=== PATIENT | female | born 1970 | race Caucasian/White ===

== ENCOUNTER 2021-01-09 10:52 | Observation (INO) ==
[2021-01-09 11:17] LABS: Basophils % 0.8 % (0.0-0.8); Eosinophils # 0.1 10*3/uL (0.0-0.87); Eosinophils % 2.7 % (0.00-10.9); Hematocrit 34.4 VOL% (35.7-47.0); Hemoglobin 12.4 GM/DL (12.0-16.0); Immature Granulocytes % 0.4 %; Immature Granulocytes Absolute 0.02 #; Lymphocytes # 1.6 10*3/uL (1.4-4.0); Lymphocytes % 32.8 % (21.3-54.2); Mean Corpuscular Volume 86.6 FL (87-102); Mean Platelet Volume 9.7 FL (9.6-12.0); Monocytes % 6.5 % (1.7-12.7); Neutrophils % 56.8 % (38.7-73.9); Platelet Count 204 T/CUMM (130-400); Red Blood Count 3.97 MC/CUMM (3.8-5.5); Red Cell Distribution Width 11.8 % (9.3-17.3); White Blood Count 4.8 T/CUMM (4-12)
[2021-01-09 11:33] LABS: Albumin 3.9 G/DL (3.4-5.0); Bilirubin,Total 0.4 MG/DL (0.2-1.0); Calcium 8.6 MG/DL (8.5-10.1); Osmolality,Calculated 267.2 MOS/KG (273-304); Potassium 3.9 MMOL/L (3.5-5.1); Total Protein 6.6 G/DL (6.4-8.2)
[2021-01-09 12:08] LABS: Bilirubin,Urine Negative (Negative); Blood, Urine Negative (Negative); Glucose,Urine (UA) Negative (Negative); Ketones,Urine Negative (Negative); Nitrite,Urine Negative (Negative); Protein,Urine Negative; Urine Appearance CLEAR (Clear); Urine Color Yellow (Yellow); Urine Specific Gravity 1.016 (1.001-1.035); Urine Urobilinogen < 2.0 EU/DL (0.2-1.0)
[2021-01-09 12:44] LABS: Barbiturates Screen,Urine Negative (Negative); Benzodiazepines Screen,Urine Negative (Negative); Cannabinoid Screen,Urine Negative (Negative); Opiate Screen,Urine Positive (Negative); Phencyclidine Screen,Urine Negative (Negative)
[2021-01-09] MEDS ORDERED: DEXTROSE 50% 25 GM/50 ML VIAL IV PRN (13:23)
[2021-01-09] MEDS ORDERED: DOCUSATE SODIUM 100 MG CAPSULE PO PRN (13:23)
[2021-01-09] MEDS ORDERED: GLUCAGON 1 MG VIAL IM PRN (13:23)
[2021-01-09] MEDS ORDERED: SIMETHICONE CHEW 125 MG TABLET PO PRN (13:23)
[2021-01-09] MEDS ORDERED: ONDANSETRON 4 MG/2 ML VIAL IV PRN (13:23)
[2021-01-09] MEDS ORDERED: ALUMINUM/MAGNES/SIMETH MAX STR 30 ML UDCUP PO PRN (13:23)
[2021-01-09] MEDS: METOPROLOL SUCCINATE XL 25 MG TABLET PO SCH (14:44)
[2021-01-09] MEDS: ENOXAPARIN 40 MG/0.4 ML SYRINGE SUBCUT SCH (14:44)
[2021-01-09] MEDS: levETIRAcetam 250 MG TABLET PO SCH ×2 (14:44→22:21)
[2021-01-09] MEDS: hydrOXYzine HCL 25 MG TABLET PO SCH ×2 (17:03→22:23)
[2021-01-09] MEDS ORDERED: oxyCODONE IR 5 MG TABLET PO PRN (18:22)
[2021-01-09] MEDS ORDERED: CYCLOBENZAPRINE 10 MG TABLET PO SCH (21:00)
[2021-01-09] MEDS ORDERED: traZODone 50 MG TABLET PO SCH (21:00)
[2021-01-09] MEDS ORDERED: AMITRIPTYLINE 10 MG TABLET PO SCH (21:00)
[2021-01-09] MEDS: PREGABALIN 75 MG CAPSULE PO SCH (22:21)
[2021-01-09] MEDS: PANTOPRAZOLE 40 MG TABLET PO SCH (22:22)
[2021-01-09] MEDS: TOPIRAMATE 25 MG TABLET PO SCH (22:22)
[2021-01-09] MEDS: tiZANidine 4 MG TABLET PO SCH (22:23)
[2021-01-09] MEDS: MIDODRINE 5 MG TABLET PO SCH (22:24)
[2021-01-10 05:15] LABS: Basophils % 0.5 % (0.0-0.8); Eosinophils # 0.2 10*3/uL (0.0-0.87); Eosinophils % 4.5 % (0.00-10.9); Hematocrit 31.6 VOL% (35.7-47.0); Hemoglobin 11.3 GM/DL (12.0-16.0); Immature Granulocytes % 0.2 %; Immature Granulocytes Absolute 0.01 #; Lymphocytes # 1.3 10*3/uL (1.4-4.0); Lymphocytes % 30.6 % (21.3-54.2); Mean Corpuscular HGB Conc 35.8 GM/DL (32-36); Mean Corpuscular Volume 86.6 FL (87-102); Mean Platelet Volume 10.1 FL (9.6-12.0); Monocytes % 6.1 % (1.7-12.7); Neutrophils % 58.1 % (38.7-73.9); Platelet Count 195 T/CUMM (130-400); Red Blood Count 3.65 MC/CUMM (3.8-5.5); Red Cell Distribution Width 11.9 % (9.3-17.3); White Blood Count 4.3 T/CUMM (4-12)
[2021-01-10 05:37] LABS: Calcium 8.4 MG/DL (8.5-10.1); Osmolality,Calculated 267.2 MOS/KG (273-304); Potassium 3.9 MMOL/L (3.5-5.1); Risk Ratio 2.42; VLDL CHOLESTEROL 10.2 MG/DL
[2021-01-10] MEDS: tiZANidine 4 MG TABLET PO SCH ×2 (06:12→14:05)
[2021-01-10] MEDS: MIDODRINE 5 MG TABLET PO SCH (08:41)
[2021-01-10] MEDS: TOPIRAMATE 25 MG TABLET PO SCH (08:42)
[2021-01-10] MEDS: PANTOPRAZOLE 40 MG TABLET PO SCH (08:42)
[2021-01-10] MEDS: levETIRAcetam 250 MG TABLET PO SCH (08:43)
[2021-01-10] MEDS ORDERED: CITALOPRAM 20 MG TABLET PO SCH (09:00)
[2021-01-10] MEDS ORDERED: FLUDROCORTISONE 0.1 MG TABLET PO SCH (09:00)
[2021-01-10] MEDS: METOPROLOL SUCCINATE XL 25 MG TABLET PO SCH (10:03)
[2021-01-10] MEDS: hydrOXYzine HCL 25 MG TABLET PO SCH ×2 (13:35→14:05)
[2021-01-10] MEDS: PREGABALIN 75 MG CAPSULE PO SCH (13:35)
[2021-01-10] MEDS: ENOXAPARIN 40 MG/0.4 ML SYRINGE SUBCUT SCH (14:05)
[2021-01-10] MEDS ORDERED: MIDODRINE 5 MG TABLET PO SCH (15:00)
[2021-01-10 15:39] VITALS: BP 104/48
== END 2021-01-10 16:50 | disposition home or self-care (01) ==
LOC: EDUNIT# → EDBD → N.EDINP 10:52 → N.ED 10:52 → N.TELES 17:48
PROVIDERS: ADMIT Hospitalist; ATTEND Hospitalist

== ENCOUNTER 2022-02-16 11:30 | Inpatient (IN) ==
[2022-02-16 12:21] LABS: Basophils # 0.1 10*3/uL (0.0-0.2); Basophils % 0.9 % (0.0-0.8); Eosinophils # 0.2 10*3/uL (0.0-0.87); Eosinophils % 3.9 % (0.00-10.9); Hematocrit 39.4 VOL% (35.7-47.0); Hemoglobin 13.3 GM/DL (12.0-16.0); Immature Granulocytes % 0.2 %; Immature Granulocytes Absolute 0.01 #; Lymphocytes # 2.4 10*3/uL (1.4-4.0); Lymphocytes % 41.7 % (21.3-54.2); Mean Corpuscular HGB Conc 33.8 GM/DL (32-36); Mean Corpuscular Volume 89.5 FL (87-102); Mean Platelet Volume 11.2 FL (9.6-12.0); Monocytes # 0.4 10*3/uL (0.11-0.8); Monocytes % 7.8 % (1.7-12.7); Neutrophils % 45.5 % (38.7-73.9); Platelet Count 200 T/CUMM (130-400); Red Cell Distribution Width 13.3 % (9.3-17.3); White Blood Count 5.7 T/CUMM (4-12)
[2022-02-16] MEDS ORDERED: SODIUM CHLORIDE 0.9% 1,000 ML IV STA ×2 (12:31→14:31)
[2022-02-16 12:38] LABS: Alanine Aminotransferase 16 U/L (13-56); Albumin 3.6 G/DL (3.4-5.0); Alkaline Phosphatase 84 U/L (45-117); Aspartate Amino Transferase 8 U/L (0-37); Blood Urea Nitrogen 10 MG/DL (7-18); Calcium 8.9 MG/DL (8.5-10.1); Carbon Dioxide 24 MMOL/L (21-32); Chloride 111 MMOL/L (98-107); Glucose 84 MG/DL (74-106); High Sensitive Troponin I* < 3.0 ng/L (0-54); Sodium 143 MMOL/L (136-145)
[2022-02-16 12:49] LABS: INR 0.9; PT Patient Result 10.5 SECS (10.5-12.0); Partial Thromboplastin Time 27.9 SECS (23.7-32.9)
[2022-02-16] MEDS ORDERED: MORPHINE 2 MG/1 ML SYRINGE IV STA ×2 (14:29→15:30)
[2022-02-16] MEDS ORDERED: ONDANSETRON 4 MG/2 ML VIAL IV PRN (16:22)
[2022-02-16] MEDS ORDERED: GLUCAGON 1 MG VIAL IM PRN (16:22)
[2022-02-16] MEDS ORDERED: SIMETHICONE CHEW 125 MG TABLET PO PRN (16:22)
[2022-02-16] MEDS ORDERED: ALUM/MAG/SIMETH/LIDO VISC 1:1 30 ML BOTTLE PO PRN (16:28)
[2022-02-16] MEDS ORDERED: DEXTROSE 10% 250 ML BAG IV PRN (16:40)
[2022-02-16] MEDS: LACTATED RINGERS 1,000 ML IV SCH (16:53)
[2022-02-16 17:23] LABS: Bacteria,Urine Occasional /HPF (Few); RBC,Urine <1 /HPF (0-4)
[2022-02-16 17:25] LABS: Bilirubin,Urine Negative (Negative); Blood, Urine Negative (Negative); Glucose,Urine (UA) Negative (Negative); Ketones,Urine Negative (Negative); Nitrite,Urine Negative (Negative); Protein,Urine Negative (Negative); Urine Appearance Clear (Clear); Urine Color Yellow (Yellow); Urine Urobilinogen 0.2 eU/dL (<2.0); Urine pH 7.5 (4.5-8.0)
[2022-02-16 17:33] LABS: Barbiturates Screen,Urine Negative (Negative); Benzodiazepines Screen,Urine Negative (Negative); Cannabinoid Screen,Urine Negative (Negative); Opiate Screen,Urine Positive (Negative); Phencyclidine Screen,Urine Negative (Negative)
[2022-02-16] MEDS ORDERED: ENOXAPARIN 40 MG/0.4 ML SYRINGE SUBCUT SCH (18:00)
[2022-02-16] MEDS: SUCRALFATE 1 GM/10 ML UDCUP PO SCH ×2 (18:41→20:37)
[2022-02-16] MEDS: DIVALPROEX ER 500 MG TABLET PO SCH (20:37)
[2022-02-16] MEDS: PANTOPRAZOLE 40 MG TABLET PO SCH (20:38)
[2022-02-16] MEDS: DOCUSATE SODIUM 100 MG CAPSULE PO PRN (20:38)
[2022-02-16] MEDS: ZALEPLON 5 MG CAPSULE PO SCH (21:56)
[2022-02-17] MEDS: LACTATED RINGERS 1,000 ML IV SCH ×3 (03:53→15:56)
[2022-02-17 06:52] LABS: Basophils % 0.5 % (0.0-0.8); Eosinophils # 0.2 10*3/uL (0.0-0.87); Eosinophils % 5.2 % (0.00-10.9); Hematocrit 35.6 VOL% (35.7-47.0); Hemoglobin 12.1 GM/DL (12.0-16.0); Immature Granulocytes % 0.5 %; Immature Granulocytes Absolute 0.02 #; Lymphocytes % 44.1 % (21.3-54.2); Mean Corpuscular Volume 89.4 FL (87-102); Mean Platelet Volume 11.5 FL (9.6-12.0); Monocytes # 0.3 10*3/uL (0.11-0.8); Monocytes % 7.7 % (1.7-12.7); Platelet Count 144 T/CUMM (130-400); Red Blood Count 3.98 MC/CUMM (3.8-5.5); Red Cell Distribution Width 13.2 % (9.3-17.3); White Blood Count 4.4 T/CUMM (4-12)
[2022-02-17 07:30] LABS: Albumin 3.4 G/DL (3.4-5.0); Bilirubin,Total 0.5 MG/DL (0.20-1.00); Potassium 3.6 MMOL/L (3.5-5.1); Risk Ratio 2.66; Total Protein 5.9 G/DL (6.4-8.2)
[2022-02-17] MEDS: PANTOPRAZOLE 40 MG TABLET PO SCH ×2 (08:08→22:16)
[2022-02-17] MEDS: SUCRALFATE 1 GM/10 ML UDCUP PO SCH ×4 (08:08→22:15)
[2022-02-17] MEDS ORDERED: BUSPIRONE 30 MG PO SCH (10:30)
[2022-02-17] MEDS: busPIRone 15 MG TABLET PO SCH ×2 (10:46→22:15)
[2022-02-17] MEDS: TOPIRAMATE 100 MG TABLET PO SCH ×2 (10:46→22:17)
[2022-02-17] MEDS: PREGABALIN 100 MG CAPSULE PO SCH ×2 (15:19→22:16)
[2022-02-17] MEDS: DIVALPROEX ER 500 MG TABLET PO SCH (22:15)
[2022-02-17] MEDS: FLUDROCORTISONE 0.1 MG TABLET PO SCH (22:16)
[2022-02-17] MEDS: ZALEPLON 5 MG CAPSULE PO SCH (22:17)
[2022-02-17] MEDS: OXcarbazepine 300 MG TABLET PO SCH (22:17)
[2022-02-18] MEDS: LACTATED RINGERS 1,000 ML IV SCH ×3 (00:01→15:54)
[2022-02-18] MEDS: SUCRALFATE 1 GM/10 ML UDCUP PO SCH ×4 (06:47→21:16)
[2022-02-18] MEDS ORDERED: LACTATED RINGERS 1,000 ML IV SCH (08:00)
[2022-02-18] MEDS: PANTOPRAZOLE 40 MG TABLET PO SCH ×2 (08:15→21:16)
[2022-02-18] MEDS: PREGABALIN 100 MG CAPSULE PO SCH ×3 (08:15→21:16)
[2022-02-18] MEDS: FLUDROCORTISONE 0.1 MG TABLET PO SCH ×2 (08:15→21:16)
[2022-02-18] MEDS: TOPIRAMATE 100 MG TABLET PO SCH ×2 (08:15→21:16)
[2022-02-18] MEDS: busPIRone 15 MG TABLET PO SCH ×2 (08:15→21:15)
[2022-02-18] MEDS ORDERED: ETOMIDATE 20 MG/10 ML VIAL IV ONE (10:52)
[2022-02-18] MEDS ORDERED: propofoL 200 MG/20 ML VIAL IV ONE (10:52)
[2022-02-18] MEDS ORDERED: LIDOCAINE 2% 5 ML VIAL ONE (10:52)
[2022-02-18] MEDS: MECLIZINE 25 MG TABLET PO SCH ×2 (14:23→21:15)
[2022-02-18] MEDS ORDERED: ACETAMINOPHEN 325 MG TABLET PO PRN (14:46)
[2022-02-18] MEDS: DIVALPROEX ER 500 MG TABLET PO SCH (21:16)
[2022-02-18] MEDS: ZALEPLON 5 MG CAPSULE PO SCH (21:16)
[2022-02-18] MEDS: DOCUSATE SODIUM 100 MG CAPSULE PO PRN (21:17)
[2022-02-18] MEDS: OXcarbazepine 300 MG TABLET PO SCH (21:17)
[2022-02-19] MEDS: LACTATED RINGERS 1,000 ML IV SCH ×2 (00:29→11:32)
[2022-02-19] MEDS: SUCRALFATE 1 GM/10 ML UDCUP PO SCH ×2 (06:32→13:05)
[2022-02-19] MEDS: busPIRone 15 MG TABLET PO SCH (09:29)
[2022-02-19] MEDS: FLUDROCORTISONE 0.1 MG TABLET PO SCH (09:29)
[2022-02-19] MEDS: PREGABALIN 100 MG CAPSULE PO SCH (09:29)
[2022-02-19] MEDS: PANTOPRAZOLE 40 MG TABLET PO SCH (09:29)
[2022-02-19] MEDS: MECLIZINE 25 MG TABLET PO SCH (09:29)
[2022-02-19] MEDS: TOPIRAMATE 100 MG TABLET PO SCH (09:29)
[2022-02-19 13:13] VITALS: BP 110/70
== END 2022-02-19 15:00 | disposition home or self-care (01) | DRG 312 ==
LOC: N.ED 11:30 → N.EDINP 16:22 → SUATTDRO 16:22 → N.TELES 17:52
PROVIDERS: ADMIT Internal Medicine; ATTEND Internal Medicine